=== PATIENT | female | born 1960 | race Caucasian/White ===

== ENCOUNTER 2018-06-12 10:36 | Outpatient (CLI) | payer MEDICAID ==
--- NOTE | 2018-06-12 12:15 | RAD ---
LUMBAR SPINE THREE VIEWS: Date: 06-12-18 Comparison: None. History: Low back pain radiating into the right leg. FINDINGS: Lateral imaging demonstrates no anterolisthesis or retrolisthesis. There is multilevel lower lumbar s pine facet hypertrophic change. There is mild midlumbar spine disc space narrowing and anterior osteo phyte formation. Clips in the right upper quadrant suggest prior cholecystectomy. No acute osseous ab normality noted. IMPRESSION: No acute osseous abnormality. Lower lumbar spine degenerative change. If there are radicular symptoms , MRI advised. POS: [facility]
== END 2018-06-12 10:37 | disposition home or self-care (01) ==
LOC: MADRAD 10:36
PROVIDERS: ATTEND Physician Assistant
DX: M25.551 Pain in right hip (principal); M47.896 Other spondylosis, lumbar region
CPT/HCPCS: 72100

== ENCOUNTER 2020-07-01 20:35 | Emergency (ER) | payer OTHER ==
--- NOTE | 2020-07-01 21:24 | CT ---
Exam: Head CT without contrast HISTORY: Blunt head trauma to the right for head. Fall. COMPARISON: none FINDINGS: Hemorrhage: No intraparenchymal hemorrhage or extra-axial hematoma. Brain parenchyma: Cortical banegas-white matter differentiation is preserved. No mass effect or midline shift. Basilar cisterns are patent. Ventricular system: Ventricles and sulci are patent and symmetric. Scalp: Small left frontal scalp hematoma. Calvarium: Intact. Sinuses and mastoid air cells: Adequate aeration. IMPRESSION: 1. No intracranial posttraumatic sequelae 2. Small left frontal scalp hematoma.
[2020-07-01] MEDS ORDERED: HYDROcodone/Acetaminophen 5/325 mg Tablet ONE (21:56)
[2020-07-01] MEDS ORDERED: Ibuprofen 800 MG TAB ONE (21:56)
== END 2020-07-01 22:21 | disposition home or self-care (01) ==
LOC: MADERS 20:35
DX: S09.90XA Unspecified injury of head, initial encounter (principal); W01.0XXA Fall on same level from slipping, tripping and stumbling without subsequent striking against object, initial encounter; Y99.0 Civilian activity done for income or pay
CPT/HCPCS: 70450

== ENCOUNTER 2025-10-04 20:35 | Emergency (ER) | payer OTHER, SELFPAY ==
[2025-10-04] MEDS ORDERED: Ketorolac Tromethamine 30 MG (1 mL) VIAL ONE (21:10)
[2025-10-04] MEDS ORDERED: HYDROcodone/Acetaminophen 5/325 mg Tablet ONE (21:10)
== END 2025-10-04 23:46 | disposition home or self-care (01) ==
LOC: MADERS 20:35
DX: S62.112A Displaced fracture of triquetrum [cuneiform] bone, left wrist, initial encounter for closed fracture (principal); W01.0XXA Fall on same level from slipping, tripping and stumbling without subsequent striking against object, initial encounter; Y99.0 Civilian activity done for income or pay
CPT/HCPCS: 29125; 96372; J1885